=== PATIENT | male | born 1945 | race Hispanic/Latino ===

== ENCOUNTER 2016-12-31 06:49 | Day surgery (SDC) | payer MEDICARE ==
[~2016-12-31 06:49] MED LIST: RINGERS SOLUTION,LACTATED 1,000 ML IV PRN
--- OUTSIDE RECORDS SUMMARY | 2016-12-31 06:53 | XMS REPORT | Continuity of Care Document ---
:1945 Author Organization [facility] ([facility]) Address [address] [place] [address] Phone [phone] Care Team Providers Name Role Phone DanaCortes Primary Care Provider [phone] Source Comments This disclosure is being made pursuant to the Care Everywhere program, applicable federal and state laws, and may not contain all informaitonavailable regarding this patient.[facility] ([facility]) Active Allergies and Adverse Reactions No Known Allergies Current Medications Prescription Sig. Disp. Refills Start Date End Date Status CAPTOPRIL PO Take 1 Tab by mouth daily. Active OMEPRAZOLE PO Take 2 Tabs by mouth 2 times Active daily. ALPRAZOLAM PO Take 1-2 Tabs by mouth at Active bedtime. Active Problems Problem Noted Date Chronic hepatitis C without mention of hepatic coma 01/21/2008 Social History Tobacco Use Types Packs/Day Years Used Date Never Smoker Smokeless Tobacco: Never Used Last Filed Vital Signs Vital Sign Reading Time Taken Blood Pressure 162/74 02/21/2015 10:00 AM CDT Pulse 58 02/21/2015 10:00 AM CDT Temperature 36.6 C (97.9 F) 02/21/2015 10:00 AM CDT Respiratory Rate 12 03/17/2008 10:40 AM CDT Height 1.702 m (5' 7") 02/21/2015 10:00 AM CDT Weight 66.679 kg (147 lb) 02/21/2015 10:00 AM CDT Body Mass Index 23.02 02/21/2015 10:00 AM CDT Oxygen Saturation - - Plan of Care Health Maintenance Due Date Last Done Comments HCV Screening 1945 Hepatitis B Vaccine (1 of 3 - Primary Series) 1945 Tdap Vaccine 1956 Lipid Disorder Screening 1963 Td Vaccine 1963 Colonoscopy 1995 Prostate Cancer Screening 1995 Zoster Vaccine 2005 Pneumococcal Vaccine (1 of 2 - PCV13) 2010 Influenza Vaccine: Seasonal (#1) 05/19/2016 Results from Last 3 Months Not on file
[2016-12-31] MEDS ORDERED: RINGERS SOLUTION,LACTATED 1,000 ML IV ONE (07:20)
[2016-12-31 09:08] VITALS: BP 130/75
--- NOTE | 2016-12-31 12:45 | OR ---
Operative Report - Dictated Report Narrative: OPERATIVE REPORT DATE OF OPERATION: 12/31/2016 PREOPERATIVE DIAGNOSIS: No recent dedicated colon studies POSTOPERATIVE DIAGNOSIS: Diverticulosis. 3 mm polyp in the cecum (pathology pending) OPERATION: Colonoscopy with hot biopsy forceps polypectomy in the cecum SURGEON: Ashwin Renee MD ANESTHESIA: LILA Avalos CRNA INDICATIONS FOR PROCEDURE: The patient is a 71-year-old male referred by A Rafael DIAS. His last colonoscopy was in 2005. There is no family history of colon cancer. The patient is currently asymptomatic. FINDINGS: Significant pancolonic diverticulosis. 3 mm area of polypoid change in the cecum (pathology pending) NARRATIVE OF PROCEDURE: The patient was identified in the holding area, and prior to the administration of anesthetic, a multidisciplinary timeout was observed. With the patient in the left lateral position and after the administration of intravenous sedation, the perineum was inspected. There was no evidence of pilonidal disease or skin breakdown. The external appearance of the anus was normal. Sphincter tone was good. The flexible fiberoptic colonoscope was inserted into the rectum which was insufflated with air. The rectal mucosa and submucosal vascular pattern appeared normal, the prep was seen to be complete. The scope was advanced through the sigmoid colon, up the descending colon, and around the splenic flexure where the triangular haustral architecture of the transverse colon was seen. The scope was advanced across the transverse colon, around the hepatic flexure to the cecum, where the confluence of tenia and the ileocecal valve were identified. The mucosa at this level appeared normal with exception of a very small area of polypoid change which was biopsied and then thoroughly destroyed electrocautery. Site was seen to be complete and hemostatic. There were numerous diverticula in the ascending colon. The scope was then slowly withdrawn in a circular fashion so that all aspects of colonic mucosa were inspected. The colon was normal in course and caliber. The haustral architecture appeared well preserved throughout with no evidence of external compression. The mucosa and submucosal vascular pattern appeared normal, specifically there was no gross evidence to suggest colitis or inflammatory bowel disease and no AV malformations were seen. There was pancolonic diverticulosis, but it was most pronounced in the ascending colon and sigmoid. No additional polyps were encountered. The scope was gradually withdrawn to the level of the rectum. As much insufflated air as possible was removed. The scope was withdrawn from the patient and the procedure terminated. The patient tolerated the anesthetic and procedure well without complication and was transferred back to the ambulatory surgery area awake and in stable condition. The patient remained stable throughout a period of postoperative observation. He denied abdominal discomfort, was able to tolerate by mouth intake, and was up without assistance. I shared the operative findings with the patient and and his , and he was given copies of the photographs which appear in the medical record. He was discharged home with instructions not to engage in hazardous activity today, but may resume normal activity tomorrow, and advance diet as tolerated. He is to continue those medications as listed in the history and physical exam. I made arrangements to contact him with the biopsy reports and will make additional recommendations for treatment and follow-up based upon those results. A pamphlet on diverticular disease was reviewed and given to him with a suggestion of the use of Benefiber or equivalent. Reviewed and electronically signed
== END 2016-12-31 06:50 | disposition home or self-care (01) ==
LOC: AMB 06:49
PROVIDERS: ATTEND Surgery
PROC: 0DBH8ZX Excision of Cecum, Via Natural or Artificial Opening Endoscopic, Diagnostic (ICD-10-PCS; principal; 2016-12-31 08:00)
DX: Z12.11 Encounter for screening for malignant neoplasm of colon (principal); D12.0 Benign neoplasm of cecum; K57.30 Diverticulosis of large intestine without perforation or abscess without bleeding; I10 Essential (primary) hypertension; K21.9 Gastro-esophageal reflux disease without esophagitis; F41.9 Anxiety disorder, unspecified; Z68.24 Body mass index [BMI] 24.0-24.9, adult

== ENCOUNTER 2017-01-01 20:25 | Emergency (ER) | payer MEDICARE ==
--- OUTSIDE RECORDS SUMMARY | 2017-01-01 20:48 | XMS REPORT | Continuity of Care Document ---
:1945 Author Organization [facility] ([facility]) Address [address] [place] [address] Phone [phone] Care Team Providers Name Role Phone DanaCortes Primary Care Provider [phone] Source Comments This disclosure is being made pursuant to the Care Everywhere program, applicable federal and state laws, and may not contain all informaitonavailable regarding this patient.[facility] ([facility]) Active Allergies and Adverse Reactions No Known [...]
--- NOTE | 2017-01-01 21:13 | ERNOTE ---
GI Bleeding/Rectal Pain ER Time Seen by Provider: 01/01/17 20:31 Source: patient Exam Limitations: no limitations Immunizations: IMMUNIZATION HX Immunizations Up to Date Yes History of Influenza Vaccine Yes Hx Pneumococcal Vaccination Yes Allergies/Adverse Reactions: Allergies No Known Allergies Allergy (Verified 01/01/17 20:47) Home Medications: HOME MEDICATIONS ALPRAZolam [Xanax] 0.5 mg PO BID PRN 12/02/16 [Last Taken Unknown] Captopril [Capoten] 25 mg PO DAILY 12/02/16 [Last Taken Unknown] Omeprazole 20 mg PO BID 12/02/16 [Last Taken Unknown] Sildenafil Citrate [Viagra] 100 mg PO DAILY PRN 12/02/16 [Last Taken Unknown] Narrative: Should have a colonoscopy done yesterday at this facility. Today he had 3 bouts of stool with bright red color in it. Patient denies any abdominal pain or rectal pain he denies any nausea or vomiting, he has had no beats to eat however he has indulged in purple grape. Review of Systems - Review of Systems Constitutional: Present: no symptoms reported EYE: Present: no symptoms reported ENT: Present: no symptoms reported Respiratory: Present: no symptoms reported Cardiology: Present: no symptoms reported Gastrointestinal/Abdominal: Present: no symptoms reported Genitourinary: Present: no symptoms reported Musculoskeletal: Present: no symptoms reported Skin: Present: no symptoms reported - Patient's Past Medical History Patient History - Medical: Anxiety, GERD, Liver Disease Patient History - Cardiac/Respiratory: No pertinent hx Patient History - Cancer: No Hx of Cancer Patient History - Surgical Procedures: Colonoscopy, EGD, T & A, Hernia Repair Patient History - Other: None - Family History Mother Family History - Medical: , No pertinent hx Family History - Cardiac/Respiratory: No pertinent hx Family History - Cancer: Breast - Social History Living Situations: home Abuse History: No History of abuse Psych History: Hx of Anxiety Smoking Status: Never smoker Alcohol Use: occasionally Drug Use: none - Immunizations Immunizations Up to Date: Yes Hx Pneumococcal Vaccination: Yes History of Influenza Vaccine: Yes Physical Exam - Physical Exam General Appearance: Present: wd/wn, alert, no apparent distress Ears, Nose, Throat: Present: normal ENT inspection Neck: Present: normal inspection, nontender Respiratory: Present: no respiratory distress, normal breath sounds, no accessory muscle use, chest nontender, lungs clear Cardiovascular/Chest: Present: regular rate, rhythm, no murmur, normal peripheral pulses Gastrointestinal/Abdominal: Present: normal bowel sounds, nontender, nondistended, soft, no organomegaly Back Exam: Present: normal inspection Extremity Exam: Present: normal inspection, non-tender, normal range of motion, no edema Neurological Exam: Present: alert, oriented, normal mood/affect, no motor/ sensory deficits Skin Exam: Present: normal color, warm/dry ED Progress - Results and Orders Patient's Lab Results:: I have reviewed the patient's lab results. - Vital Signs Patient's Vital Signs:: I have reviewed the patient's vital signs. Vital Signs: Vital Signs 01/01/17 20:41 Temperature 36.8 C Pulse Rate 61 Respiratory 20 Rate Blood Pressure 206/87 O2 Sat by Pulse 100 Oximetry - Progress/Reassessment Chief Complaint: GI Bleed Plan - Plan Plan: occult blood negative stools, CBC is stable and he did not tilt. Case discussed with Dr. Renteria and I believe this patient's red stools are due to the purple grapes he ingested. will discharge home with reassurance Departure Clinical Impression: Feared condition not demonstrated - Departure Disposition: Home self-care Condition: Good Additional Instructions: Certain foods when ingested can cause red stools, these foods include red or purple grapes, beets, and marinara sauce. Follow up with your own physician as needed. Referrals: Janel Hall FNP [Primary Care Provider] -
[2017-01-01 21:17] LABS: Hematocrit 36.4 % (42.0-52.0); Hemoglobin 12.6 gm/dL (13.5-18.0); Mean Cell Volume 88.6 fl (78-100); Mean Corpuscular Hemoglobin 30.7 pg (27-31); Mean Corpuscular Hgb Conc 34.6 g/dl (32-36); Mean Platelet Volume 9.5 fl (6.0-9.5); Neutrophil # 7.2 K/mm3 (1.3-6.0); Neutrophil % 81.9 % (42-75.0); Platelet Count 171 K/mm3 (150-450); Red Blood Count 4.11 M/mm3 (4.7-6.0); Red Cell Distribution Width 13.2 % (11.5-14.0); White Blood Count 8.8 K/mm3 (4.0-10.5)
[2017-01-01 21:35] LABS: Albumin * 4.2 gm/dl (3.4-5.0); Anion Gap 15.8 mmol/L (6.8-13.8); BUN/Creatinine Ratio 8.9 (9.0-21.6); Bilirubin, Total 0.4 mg/dL (0.0-1.1); Ca. Corrected For Albumin 8.4 mg/dL (8.4-10.2); Calcium * 8.9 mg/dL (7.9-10.9); Carbon Dioxide 24.6 mmol/L (24-32.6); Potassium 3.4 mmol/L (3.4-4.6); Total Protein 7.7 gm/dL (6.2-8.2)
[2017-01-01 21:43] LABS: Urine Bilirubin Negative (NEGATIVE); Urine Ketone Negative (NEGATIVE); Urine Nitrite Negative (NEGATIVE); Urine Protein Negative (NEGATIVE); Urine Specific Gravity <=1.005 SP.GR. (1.005-1.030); Urine Urobilinogen Normal (NORMAL)
[2017-01-01 22:00] VITALS: BP 174/71
[2017-01-01 22:02] LABS: Urine Appearance Clear; Urine Blood 10 /ul (NEGATIVE); Urine Color Yellow
[2017-01-01 22:03] LABS: Urine Bacteria None Seen; Urine RBC None Seen /hpf (0-5); Urine WBC None Seen /hpf (0-5)
== END 2017-01-01 21:55 | disposition home or self-care (01) ==
LOC: ER 20:25
DX: Z71.1 Person with feared health complaint in whom no diagnosis is made (principal)